=== PATIENT | female | born 1980 | race African-American/Black ===

== ENCOUNTER → 2020-10-03 | Outpatient (CLI) | payer OTHER ==
[~2020-10-03] MED LIST: DEBLITANE0.35 MG PO; PROZAC20 M1 PO; SPIRONOLACTONE50 MG PO
== END ==
LOC: LAB 14:17
PROVIDERS: ATTEND Surgery
DX: Z20.828 Contact with and (suspected) exposure to other viral communicable diseases (principal)

== ENCOUNTER 2020-10-08 10:01 | Inpatient (IN) | payer OTHER ==
[~2020-10-08] VITALS: Ht 167.6 cm; Wt 129.3 kg
--- NOTE | ~2020-10-08 | O ---
[facility] [place] [address] OPERATIVE REPORT Name: YAQUELIN HUNT Room #: 150-5 ADM IN M.R.#: [id number] Admission: 10/08/20 Attend Phys: Bridger Daugherty MD Discharge: Date of : 82 Report #: [id number] THIS REPORT FOR: cc: FAM - Family physician unknown FAM - Family physician unknown Bridger Daugherty MD ~ DATE OF SERVICE: 10/08/2020 PREOPERATIVE DIAGNOSIS: Morbid obesity. POSTOPERATIVE DIAGNOSIS: Morbid obesity. OPERATIVE PROCEDURE DONE: Laparoscopic vertical sleeve gastrectomy. OPERATING SURGEON: Bridger Daugherty MD INDICATIONS FOR THE PROCEDURE: The patient is a 40-year-old female who presented with features of morbid obesity. She was noted to have a weight of 175 kilograms with a BMI of 48. The patient was advised laparoscopic vertical sleeve gastrectomy and possible hiatal hernia repair. The patient showed understanding and agreed to proceed. DESCRIPTION OF PROCEDURE: After explaining to the patient in detail and informed consent was obtained, the patient was identified in the preoperative holding area. The patient was transferred to the operating room and was placed in supine position. Sequential compressive devices were placed for DVT prophylaxis. Preoperative antibiotics were given. After induction of anesthesia, the abdomen was prepped and draped in a sterile fashion through a left upper quadrant 1 cm incision and using Optiview technique, peritoneal cavity was entered and pneumoperitoneum was created. So thereafter under direct vision, another 5 mm trocar was placed in the left mid abdomen, another 12 mm trocar was placed in the right mid abdomen, another 5 mm trocar was placed in the right subcostal region and through a 1 cm incision in the epigastrium, a Prudence retractor was introduced and the left lobe of the liver was retracted. On initial inspection, I did not see any evidence of hiatal hernia. I started to take down the gastroepiploic vessels using EnSeal. This was continued superiorly. The short gastric vessels were taken down. The gastrophrenic ligament was divided distally. The gastroepiploic vessels were taken down up to about 4 cm proximal to the pylorus. At this point, a 36-[place]vian ViSiGi tube was inserted into the stomach and this was placed along the lesser curve of the stomach. Stomach was then divided in a vertical fashion with multiple Endo-[employer] [place] stapler, 2 green loads and multiple gold loads were used to divide the stomach in a vertical fashion to create a loose sleeve around the 36-Latvian bougie. An air leak test was performed by instilling air into the stomach and by irrigation of fluid along the staple line. There was no leak that was noted. [facility] [address] [place] [address] OPERATIVE REPORT Name: YAQUELIN HUNT Room #: [facility] ADM IN M.R.#: [id number] Admission: 10/08/20 Attend Phys: Bridger Daugherty MD Discharge: Date of : 82 Report #: [id number] Absolute hemostasis was ensured. Thorough saline irrigation was given. Approximately about 10 mL of lidocaine and Marcaine mix was instilled under the left hemidiaphragm. The sleeve gastrectomy specimen and the Prudence retractor was removed. The 12 mm port site incision was closed with 0 Vicryl for the fascia. Skin was closed with 4-0 Monocryl for all the incisions. Dermabond was applied. The patient was stable at the end of the procedure. The patient was awoken from anesthesia and was transferred to the recovery room in stable condition. ESTIMATED BLOOD LOSS: Approximately 5 mL. CONDITION OF THE PATIENT: Stable. FLUIDS GIVEN: Per anesthesia notes. SPECIMEN SENT: Sleeve gastrectomy specimen. COMPLICATIONS: None. ANESTHESIA: General anesthesia. By: 1421 1440 Bridger Daugherty MD /nt
[2020-10-08 10:40] LABS: HEMOGLOBIN 13.7 gm/dL (12.0-15.0); MCH 28.9 pg (26.0-34.0); MCHC 33.5 g/dL (28.0-37.0); MCV 86.2 fL (80.0-100.0); RBC 4.76 mil/uL (4.20-5.00); RDW 13.3 % (10.5-14.5); WBC 7.2 thou/uL (4.0-11.0)
[2020-10-08 10:48] LABS: CALCIUM 9.7 mg/dL (8.5-10.1); POTASSIUM 3.4 mmol/L (3.5-5.1)
[2020-10-08 10:56] LABS: ALBUMIN 3.9 g/dL (3.4-5.0); TOTAL BILIRUBIN 0.4 mg/dL (0.2-1.0); TOTAL PROTEIN 8.4 g/dL (6.4-8.2)
[2020-10-08 11:35] VITALS: BP 136/85
--- NOTE | 2020-10-08 15:39 | EKG ---
[address] [address] ELECTROCARDIOGRAM REPORT Name: YAQUELIN HUNT Room #: 437-P [facility] IN M.R.#: [id number] Admission: 10/08/20 Attend Phys: Bridger Daugherty MD Discharge: Date of : 82 Report #: [id number] [facility] Test Date: 2020-10-08 Test Time: 10:36:46 Pat Name: YAQUELIN HUNT Department: Room: [facility] Gender: F Magneto Specialist: SHA : 1980 Requested By: Bridger Daugherty Order Number: [id number] : Lorne Valdez Measurements Intervals Cisco Rate: 79 P: 49 DC: 152 QRS: 26 QRSD: 103 T: 16 QT: 415 QTc: 476 Interpretive Statements Sinus rhythm No previous ECG available for comparison Electronically Signed On 10-08-2020 15:39:14 [employer]TR [employer] by Lorne Valdez [email or web address] <ELECTRONICALLY SIGNED> By: Lorne Valdez MD, [facility] 10/08/20 1539 1036 1036 Lorne Valdez MD, FACC /EPI
[2020-10-08 16:06] VITALS: BP 159/103
[2020-10-08 16:45] VITALS: BP 154/103
--- NOTE | 2020-10-08 17:47 | NUR ---
PT CARE ASSUMED FROM PACU AT 1448. A&Ox4. VITALS STABLE. ADMISSION COMPLEETED. NPO. PT HAS ALREADY AMBULATED IN THE HALLWAY. FEELING GAS PAIN. IV PATENT WITH NO REDNESS OR EDEMA, FLUIDS INFUSING. SCD'S IN PLACE. LAPSITESx5. TEDHOSES/SCD'S IN PLACE. CALL LIGHT IN REACH. WILL CONTINUE TO MONITOR.
[2020-10-09 00:06] LABS: GLYCOHEMOGLOBIN (HGB A1C) 7.8 % (4.8-5.6)
[2020-10-09 05:00] VITALS: BP 129/73
[2020-10-09 06:32] LABS: HEMATOCRIT 40.4 % (37.0-47.0); MCH 28.3 pg (26.0-34.0); MCHC 32.2 g/dL (28.0-37.0); MCV 87.8 fL (80.0-100.0); RBC 4.6 mil/uL (4.20-5.00); RDW 13.3 % (10.5-14.5); WBC 10.5 thou/uL (4.0-11.0)
[2020-10-09 06:46] LABS: CREATININE 0.9 mg/dL (0.6-1.0); POTASSIUM 3.3 mmol/L (3.5-5.1)
[2020-10-09 07:14] VITALS: BP 142/98
[2020-10-09] MEDS ORDERED: PHENERGAN 25 MG25 M1 PO (07:54)
[2020-10-09] MEDS ORDERED: NORCO 10-325 T1 EACH PO (07:54)
--- NOTE | 2020-10-09 07:56 | NUR ---
VSS-AFEBRILE. OOB MULTIPLE TIMES THROUGH NIGHT TO AMBULATE HALLWAY. PAIN AND NAUSEA WELL CONTROLLED WITH IV MEDICATIONS. ABDOMINAL INCISIONS INTACT WITH NO DRAINAGE. KEPT NPO THROUGH NIGHT, OK TO START CLEAR LIQUIDS THIS MORNING. FALL PRECAUTIONS IN PLACE.
--- NOTE | 2020-10-09 09:08 | NUR ---
ORDERS FOR AMBULATION RECEIVED. SPOKE WITH Pt WHO STATES SHE DID 7 LAPS ALREADY THIS MORNING AND IS NOT HAVING ANY DIFFICULTY WITH MOBILITY. Pt FEELS SAFE FOR HOME TODAY. Pt DECLINING FORMAL P.T. CARIN
[2020-10-09 11:27] VITALS: BP 142/98
--- NOTE | 2020-10-09 14:53 | NUR ---
Assumed pt care at 7am.Pt up adlib in the room and hallways independently. Assessment completed.vss but elevated bp noted.Dr Daugherty aware and said pt will resume home med today after dc.Pt ate clear liq for breakfast but c/o nausea some minutes later,zofran ivp given with relief.Dr Daugherty rounded on pt and dc order noted.Pt said she will go home later today.She is in the shower at present .Will continue to monitor.
--- NOTE | 2020-10-10 18:06 | PATH ---
[facility] [address] [place] [address] PATHOLOGY RPT PROCEDURE Name: KRISTINE HUNT Room #: 457-P [facility] IN M.R.#: [id number] Admission: 10/08/20 Date of : 82 Discharge: 10/09/20 Report #: [id number] Path Case #: [id number] [facility] Accession Number: [id number] . 01 Material submitted: . stomach - STOMACH . 01 Clinical history: . MORBID OBESITY . 02 Diagnosis: Stomach, laparoscopic sleeve gastrectomy: - No diagnostic abnormalities, history of morbid obesity. (IUV:pit 10/10/2020) QTP 10/10/2020 1241 Local . 02 Electronically signed: . Fe Feldman MD, Pathologist NPI- [id number] . 01 Gross description: . The specimen is received in formalin, labeled "Yasmin, Kristine, stomach" and consists of a crescent-shaped partial gastrectomy specimen measuring 19.5 cm in length and up to 4.3 cm in diameter. The serosa is pink-rushing smooth and shiny. Opening reveals a pink-rushing mucosa with no gross lesions. Biological Chemist sections are submitted in A1. (SDY; 10/09/2020) SYU/SYU 10/09/2020 1132 Local . 02 Pathologist provided ICD-10: E66.01 . 02 CPT . 710403 Specimen Comment: A courtesy copy of this report has been sent to [phone] Specimen Comment: [id number] Specimen Comment: Report sent to / DR DAILY Performed at: [address], [place] [id number] MD Leonard Yeh MD Phone: [phone] Performed at: [address] [id number] MD Fe Feldman MD Phone: [phone]
== END 2020-10-09 17:40 | disposition home or self-care (01) | DRG 621 ==
LOC: TBA 10:01 → PRE 12:03 → 4S 15:10 → PRE 16:38 → 4W 19:19
PROVIDERS: ADMIT Surgery; ATTEND Surgery
PROC: 0DB64Z3 Excision of Stomach, Percutaneous Endoscopic Approach, Vertical (ICD-10-PCS; principal; 2020-10-08)
DX: E66.01 Morbid (severe) obesity due to excess calories (principal); Z68.42 Body mass index [BMI] 45.0-49.9, adult; Z79.899 Other long term (current) drug therapy
CPT/HCPCS: 10045; 10047; 50010; 50101; 50386; 50555; 50558; 50739; 50740; 51489; 52265; 52266; 53307; 54022; 54118; 56462; 56525; 56526; 57092; 62110; 62900; 70005